=== PATIENT | female | born 1940 | race Caucasian/White ===

== ENCOUNTER → 2016-08-18 | Outpatient (CLI) | payer MEDICARE ==
--- NOTE | 2016-08-18 14:11 | KCIC ---
MR LUMBAR SPINE Indication: Chronic neck and back pain Technique: Sagittal T2, sagittal STIR, and sagittal T1-weighted images were obtained. Additional axial T1 and T2 weighted imaging was also performed. FINDINGS: There is very subtle grade 1 anterolisthesis of L5 on S1 and very subtle retrolisthesis of L2 on L3. Vertebral body heights are maintained. Bone marrow signal is normal. The conus terminates normally at the level of L2. Visualized intra-abdominal contents demonstrates left renal cysts and cortical scarring of the right kidney. L5-S1 there is mild bilateral facet arthropathy with very subtle grade 1 degenerative anterolisthesis. There is also mild disc height loss. This results in bilateral moderate bilateral foraminal stenosis worse on the right. Correlate for L5 radiculopathy symptoms. At L4-L5 there is a small disc bulge but no significant central spinal or neural foraminal stenosis. At L3-L4 there is a small disc bulge but no spinal stenosis. At L2-L3 there is a small disc bulge but no central spinal or neural foraminal stenosis. At L1-L2 there is no spinal stenosis. IMPRESSION: Degenerative disc and facet disease greatest at L5-S1 where there is grade 1 degenerative anterolisthesis and mild/moderate bilateral foraminal stenosis. This is somewhat worse on the left. Correlate for L5 radiculopathy symptoms. Electronically signed by: Shayne Miranda MD (08/18/2016 2:08 PM)
--- NOTE | 2016-08-18 14:14 | KCIC ---
MR CERVICAL SPINE Chronic neck and back pain Technique: Sagittal T2, sagittal STIR, sagittal T1, and axial gradient echo imaging was obtained of the cervical spine. FINDINGS: There is reversal of cervical lordosis centered over C5-C6. Craniocervical junction is within normal limits. The cord is normal in caliber with no signal abnormality identified. Visualized soft tissues of the neck are within normal limits. Incidental note is made of retropharyngeal course of the carotid arteries. At C2-3 there is no spinal stenosis. C3-4 there is no spinal stenosis. C4-5 there is very subtle anterolisthesis. There is mild facet arthropathy but no spinal stenosis. At C5-C6 there is bilateral vertebral hypertrophy worse on the right resulting in moderate right foraminal stenosis. Correlate for right C6 radiculopathy. At C6-C7 there is bilateral facet and uncovertebral hypertrophy causing mild bilateral foraminal stenosis. At C7-T1 there is no spinal stenosis. IMPRESSION: Degenerative disc and facet disease greatest at C5-6 where there is moderate right foraminal stenosis. Correlate for right C6 radiculopathy. Other less severe degenerative changes per level as above. Electronically signed by: Shayne Miranda MD (08/18/2016 2:11 PM)
== END | disposition home or self-care (01) ==
LOC: KCIC MRI 11:58
PROVIDERS: ATTEND Internal Medicine
DX: M50.322 Other cervical disc degeneration at C5-C6 level (principal); M48.02 Spinal stenosis, cervical region; M54.12 Radiculopathy, cervical region
CPT/HCPCS: 72141; 72148

== ENCOUNTER → 2017-01-17 | Outpatient (CLI) | payer MEDICARE ==
--- NOTE | 2017-01-17 15:05 | KCIC ---
DATE: 01/17/2017 EXAM: MAMMO SABRINA SCREENING BILATERAL HISTORY: Routine screening COMPARISON: 01/06/2016 This study was interpreted with the benefit of Computerized Aided Detection (CAD). The breast parenchyma is primarily fatty replaced. Breast parenchyma level density A. FINDINGS: 2-D and 3-D tomosynthesis imaging was performed in CC and MLO projections. No new or enlarging breast densities are seen. Benign type calcifications are present. No suspicious microcalcifications have developed. IMPRESSION: Stable mammograms without evidence of malignancy. BI-RADS CATEGORY: 2 BENIGN FINDING(S) RECOMMENDED FOLLOW-UP: 12M 12 MONTH FOLLOW-UP PQRS compliance statement: Patient information was entered into a reminder system with a target due date for the next mammogram. Mammography is a sensitive method for finding small breast cancers, but it does not detect them all and is not a substitute for careful clinical examination. A negative mammogram does not negate a clinically suspicious finding and should not result in delay in biopsying a clinically suspicious abnormality. "Our facility is accredited by the [employer] Mammography [employer]."
== END | disposition home or self-care (01) ==
LOC: KCIC MAMMO 13:40
PROVIDERS: ATTEND Internal Medicine
DX: Z12.31 Encounter for screening mammogram for malignant neoplasm of breast (principal)
CPT/HCPCS: 77063; G0202; 77067

== ENCOUNTER → 2017-07-27 | Outpatient (CLI) | payer MEDICARE | END | disposition home or self-care (01) | LOC: KCIC CT 09:41 | DX: J43.9 Emphysema, unspecified (principal); I25.10 Atherosclerotic heart disease of native coronary artery without angina pectoris | CPT/HCPCS: 71250 ==

== ENCOUNTER → 2018-01-18 | Outpatient (CLI) | payer MEDICARE ==
--- NOTE | 2018-01-18 18:16 | KCIC ---
Bilateral digital screening mammograms with 3-D tomosynthesis: Reason for examination: Routine screening. Comparison is made to previous studies dated back to 01/05/2015. Bilateral mammograms in CC and oblique projections were obtained with 2-D imaging and 3-D tomosynthesis imaging on a Siemens Inspiration unit and reviewed on the workstation. Interpretation was made with the benefit of CAD. The skin and nipples show no abnormalities. No abnormal axillary lymph nodes are seen. The breast parenchyma is predominantly fatty. (Breast density: Category A.) There continues to be some asymmetric parenchyma in the left breast in the retroareolar and 2:00 B positions which is unchanged. There continues to be a small parenchymal density in the 1:00 B position of the right breast which is unchanged. There are no new dominant masses, suspicious calcifications or architectural distortion. Benign calcifications are present. Impression: No evidence of malignancy. Recommend routine screening. BI-RAD Category 2: Benign. "Our facility is accredited by the [employer] Mammography Program." This patient's information has been entered into a reminder system for the patient to be notified with the results of her examination and a target date for the next mammogram. Electronically signed by: Hanane Aburto MD (01/18/2018 6:13 PM) [facility]
== END | disposition home or self-care (01) ==
LOC: KCIC MAMMO 09:46
PROVIDERS: ATTEND Internal Medicine
DX: Z12.31 Encounter for screening mammogram for malignant neoplasm of breast (principal)
CPT/HCPCS: 77063; 77067

== ENCOUNTER → 2018-06-10 | Outpatient (CLI) | payer MEDICARE ==
[2018-03-28 15:00] VITALS: BP 150/76
[~2018-06-10] MED LIST: AMLO5TAB10 PO; ASPI325T11 PO; BUDE10.22 IH; CALC-474 PO; GABA300C18 PO; IOHEXOL 300 MG/ML 100ML VIAL. IV ONE; METO-239 PO; OMEP20CA10 PO; SIMV20TA3 PO
--- NOTE | 2018-06-10 14:31 | KCIC ---
PQRS Compliance statement: One or more of the following individualized dose reduction techniques were utilized for this examination: 1. Automated exposure control. 2. Adjustment of the mA and/or kV according to patient size. 3. Use of iterative reconstruction technique. Indication:Thoracic aneurysm. TECHNIQUE: CT angiograms chest, abdomen and pelvis with IV contrast with multiplanar MIP reformats. 3-D volume rendered postprocessing was performed. COMPARISON: CT chest from 03/25/2018 FINDINGS: Heart is normal in size. No pericardial or pleural effusion. 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 Either an anatomic variant or surgically transposed left subclavian artery is seen originating from the aortic arch. The proximal bilateral common carotid arteries, bilateral vertebral arteries and right subclavian artery are patent. Mild diffuse atherosclerotic disease seen of the aortic arch and distal descending aorta. Aneurysmal dilation of the distal descending thoracic aorta with thick eccentric mural plaque measuring 5.4 x 4.3 cm, previously 5.0 x 4.4 cm. The length of the aneurysm approximately measures 6.2 cm just above the diaphragmatic hiatus. The celiac axis, splenic artery, left gastric artery, common hepatic artery, SMA, bilateral renal arteries, MAIDA, bilateral common iliac arteries, bilateral external and internal iliac arteries are patent. Delayed that mild atherosclerotic disease is seen in the bilateral common iliac arteries, bilateral external/internal iliac arteries and common femoral arteries. Infrarenal abdominal aortic aneurysm is seen measuring 3.4 x 3.0 cm in diameter for length of approximately 8 cm. No enlarged axillary, mediastinal or hilar adenopathy. Moderate diffuse emphysema. Lungs are clear. Liver, spleen, gallbladder, pancreas, adrenals within normal limits. Simple cyst is seen in the left kidney, the largest measuring 5.8 x 4.1 cm. No enlarged retroperitoneal or pelvic adenopathy. No free pelvic fluid or ascites. Left inguinal hernias is seen containing loop of small bowel with neck of the hernia measuring 3.2 cm. Right femoral hernia is seen containing loop of small bowel with neck of the hernia measuring 4.4 cm. No bowel obstruction. Normal appendix. Status post hysterectomy. Urinary bladder is within normal limits. No suspicious bony lesion. IMPRESSION: 1. Thoracic and abdominal aortic aneurysm as described above. 2. Moderate emphysema. 3. Bilateral inguinal hernias as described above. Electronically signed by: Larry Ashton DO (06/10/2018 2:28 PM) [facility]
== END | disposition home or self-care (01) ==
LOC: KCIC CT 09:34
PROVIDERS: ATTEND Surgery
DX: I71.2 Thoracic aortic aneurysm, without rupture (principal); I71.4 Abdominal aortic aneurysm, without rupture; J43.9 Emphysema, unspecified; K40.20 Bilateral inguinal hernia, without obstruction or gangrene, not specified as recurrent; I70.0 Atherosclerosis of aorta; N28.1 Cyst of kidney, acquired; I10 Essential (primary) hypertension; Z90.710 Acquired absence of both cervix and uterus; Z79.01 Long term (current) use of anticoagulants
CPT/HCPCS: 71275; 74174; Q9967

== ENCOUNTER → 2018-07-02 | Outpatient (CLI) | payer MEDICARE ==
[2018-03-28 15:00] VITALS: BP 150/76
[~2018-07-02] MED LIST changes: -IOHEXOL 300 MG/ML 100ML VIAL. IV ONE; +REGADENOSON 0.4 MG/5 ML DISP.SYRIN. IV ONE
--- NOTE | 2018-07-02 09:48 | CARD ---
MR#: [id number] Date of Study: 07/02/2018 Ordering Physician: FREDI GARNER, Referring Physician: FREDI GARNER, Tech: Rocio Mcneal APPROVED REPORT EXAM: Two-dimensional and M-mode echocardiogram with Doppler and color Doppler. Other Information Quality : AverageHR: 63bpm Technically limited study due to COPD INDICATION Pre-Op RISK FACTORS Hypertension Hyperlipidemia Smoking 2D DIMENSIONS RVDd2.0 (2.9-3.5cm)Left Atrium(2D)3.0 (1.6-4.0cm) IVSd0.9 (0.7-1.1cm)Aortic Root(2D)3.0 (2.0-3.7cm) LVDd5.2 (3.9-5.9cm)LVOT Diameter1.9 (1.8-2.4cm) PWd1.3 (0.7-1.1cm)LVDs3.6 (2.5-4.0cm) FS (%) 30.9 %SV76.7 ml LVEF(%)58.1 (>50%) Aortic Valve AoV Peak Emanuel.143.4cm/sAoV VTI31.9cm AO Peak GR.8.2mmHgLVOT Peak Emanuel.96.3cm/s LVOT VTI 22.35cmAO Mean GR.4mmHg DEBRA (VMAX)1.80mj6OQB (VTI)1.98cm2 Mitral Valve MV E Mjsohgxm22.6cm/sMV DECEL [id number] MV A Uwqgqiak08.0cm/sMV YTY55yw E/A Ratio1.0MVA (PHT)2.54cm2 TDI E/Lateral E'9.8E/Medial E'14.8 Pulmonary Valve PV Peak Uqxtxwio37.0cm/sPV Peak Grad.3mmHg Tricuspid Valve TR P. Iasbuais025la/sRAP CAZRUUOL5lkBq TR Peak Gr.85zgDsQKYH55qpXa Pulmonary Vein S1 Biiddwgm99.9cm/sD2 Ezxvlqgl88.0cm/s PVa qtslybrz667oiyi LEFT VENTRICLE The left ventricle is normal size. There is mild to moderate concentric left ventricular hypertrophy. The left ventricular systolic function is normal and the ejection fraction is within normal range. T he Ejection Fraction is >55%. There is normal LV segmental wall motion. Transmitral Doppler flow mynor jessica is Grade I-abnormal relaxation pattern. RIGHT VENTRICLE The right ventricle is normal size. There is normal right ventricular wall thickness. The right ventr icular systolic function is normal. ATRIA The left atrium size is normal. The right atrium size is normal. The interatrial septum is intact wit h no evidence for an atrial septal defect or patent foramen ovale as noted on 2-D or Doppler imaging. AORTIC VALVE The aortic valve is thickened but opens well. Doppler and Color Flow revealed no significant aortic r egurgitation. There is no significant aortic valvular stenosis. MITRAL VALVE The mitral valve is normal in structure and function. There is no evidence of mitral valve prolapse. There is no mitral valve stenosis. Doppler and Color Flow revealed no mitral valve regurgitation note d. TRICUSPID VALVE The tricuspid valve is normal in structure and function. Doppler and Color Flow revealed trace tricus pid regurgitation. There is no tricuspid valve stenosis. PULMONIC VALVE The pulmonic valve is not well visualized. Doppler and Color Flow revealed trace pulmonic valvular re gurgitation. GREAT VESSELS The aortic root is normal in size. The IVC is normal in size and collapses >50% with inspiration. PERICARDIAL EFFUSION There is no evidence of significant pericardial effusion. Critical Notification Critical Value: No <Conclusion> The left ventricular systolic function is normal and the ejection fraction is within normal range. Th e Ejection Fraction is >55%. There is normal LV segmental wall motion. Signed by : Bala Bush, Electronically Approved : 07/02/2018 09:48:03
--- NOTE | 2018-07-02 11:41 | RAD ---
MR#: [id number] Date of Study: 07/02/2018 Ordering Physician: FREDI GARNER, Referring Physician: SKYLAR EDMONDSON Tech: RT Kaitlin OrellanaR) (N) APPROVED REPORT Test Type: Pharmacological Stress Nurse/Tech: Chyna STOCKTON Test Indications: Thoracic Aortic Aneurysm, Pre OP Cardiac History: Cardiac cath 13yrs ago, HTN, X-smoker=Quit 6mths ago, See EMR Medications: ASA 325mg, See EMR Medical History: COPD, See EMR Resting ECG: SR Resting Heart Rate: 60 bpm Resting Blood Pressure: 142/68mmHg Pretest Chest Pain: No chest pain Nurse/Tech Notes Heart tones regular, Lungs diminished in bases and Right upper lobe wheezing. Consent: The procedure was explained to the patient in lay terms. Informed consent was witnessed. Ugo eout was entered into [email or web address]. History and Stress Test performed by RT Esteban (R) (N) Pharm. Details Pharmacologic stress testing was performed using 0.4mg per 5ml of regadenoson given intravenously ove r 7-10 seconds. Stress Symptoms Dyspnea with some chest "fullness". POST EXERCISE Reason for Termination: Infusion complete Max HR: 87 bpm Max Blood Pressure: 146/64mmHg Blood Pressure response to exercise: Normal blood pressure response during stress. Chest Pain: Yes. see stress symptoms Arrhythmia: No. ST Change: No. INTERPRETATION Stress EKG Conclusion: Baseline EKG showed sinus rhythm. No ischemic changes at peak stress. No arr hythmias. Imaging Protocol IMAGE PROTOCOL: Rest Tc-99m/stress Tc-99m 1 day Rest: Stress: Viability: Radiopharm.Tc99m CucppmmyrSd70k Sestamibi Uyug56cFi 32mCi Duration 15min. 10min. Img Date 07/02/2018 07/02/2018 Inj-Img Oixh70wqu. 60min. Rest Admin Site:IV - Left AntecubitalAdministrator:RT Kaitlin OrellanaR)(N) Stress Admin Site: IV - Left AntecubitalAdministrator: DULCE Weaver, ARRT (R)(N) STRESS DATA End Diast. Vol.63.0mlAv. Heart Rate69.0bpm End Syst. Vol.18.0mlCO Index BSA0.0L/min Myocardial Djhe230.0gEject. Vdcnzlqn42.0% Stress Rates Pk. Fill Rate2.75EDV/secLVtime Pk. Fill 235.78msec Pk. Empty Rate3.98ESV/secLVtime Pk. Szxat414.55msec 1/3 Pk. Fill0.60EDV/sec Stress Scores Regional WT0.00Summed WT0.00 Regional WM0.00Summed WM4.00 Study quality was good. Left Ventricular size was Normal at Rest and Stress. Lung uptake was . Left Ventricular ejection fraction is 71%. The rest and stress images show normal perfusion, normal contraction and thickening. LV Perf. Quant 17 Seg. SSS3.00 17 Seg. SRS0.00 17 Seg. SDS3.00 Stress Defect Extent (% LAD)0.00Rest Defect Extent (% LAD)0.00Rev. Defect Extent (% LAD)0.00 Stress Defect Extent (% LCX) 17.50Rest Defect Extent (% LCX)0.00Rev. Defect Extent (% LCX)12.50 Stress Defect Extent (% RCA)0.00Rest Defect Extent (% RCA)0.00Rev. Defect Extent (% RCA)0.00 Stress Defect Extent (% EMORY)3.70Rest Defect Extent (% EMORY)0.00Rev. Defect Extent (% EMORY)2.80 Conclusion 1. Regadenoson cardioisotope stress test did not show any evidence of ischemia or infarct. 2. Normal left ventricular systolic function with ejection fraction calculated at 71%. 3. Low risk for cardiac events. Signed by : Shaka Valenzuela, Electronically Approved : 07/02/2018 11:40:13
== END | disposition home or self-care (01) ==
LOC: NM 07:44
PROVIDERS: ATTEND Surgery
DX: Z01.818 Encounter for other preprocedural examination (principal); I11.9 Hypertensive heart disease without heart failure; J44.9 Chronic obstructive pulmonary disease, unspecified; I71.2 Thoracic aortic aneurysm, without rupture; E78.5 Hyperlipidemia, unspecified; Z87.891 Personal history of nicotine dependence
CPT/HCPCS: 78452; 93017; 93306; 96374; A9500; J2785

== ENCOUNTER → 2018-08-22 | Outpatient (CLI) | payer MEDICARE ==
[2018-03-28 15:00] VITALS: BP 150/76
[~2018-08-22] MED LIST changes: +CONTRAST GIVEN. MC PRN; +IOHEXOL 350 MG/ML 100 ML VIAL. IV ONE; -REGADENOSON 0.4 MG/5 ML DISP.SYRIN. IV ONE
--- NOTE | 2018-08-22 15:59 | RAD ---
Chest, 2 views, 08/22/2018: HISTORY: Repaired thoracic aortic aneurysm Comparison is made to a study from 03/25/2018. A stent graft has been placed in the descending thoracic aorta. There is calcific plaquing of the aorta. There is residual right lateral bulging of its right lateral wall at the lower thoracic level. The heart is at the upper limits of normal in size. The pulmonary vascularity is normal. There are emphysematous changes in the lungs. There are scattered parenchymal scars. No acute infiltrate is seen. There is no evidence of pleural fluid. Surgical clips are noted in the lower neck on the left. IMPRESSION: 1. Interval placement of a stent graft within the known descending thoracic aortic aneurysm. 2. Emphysema with bilateral parenchymal scarring. Electronically signed by: Cameron Rico MD (08/22/2018 3:56 PM) [facility]
--- NOTE | 2018-08-23 17:03 | RAD ---
CTA of the chest compared to similar study dated June 10, 2018 for thoracic aneurysm. TECHNIQUE: Contiguous helical 0.5 mm axial images are obtained from the thoracic inlet to the base of the diaphragm following administration of IV contrast in the systemic arterial phase. Sagittal and coronal MIPS are evaluated as are 3-D volume rendered images of the arterial system Nonvascular findings:There are advanced emphysematous changes, grossly stable. No suspicious lung nodules or masses are identified. Heart size within normal limits. Coronary artery calcifications are present. No suspicious mediastinal, hilar, or axillary lymphadenopathy is seen. Evaluation of the upper abdominal organs is limited by arterial phase of contrast, however no gross abnormalities of the visualized regions are evident. There are no suspicious osteoblastic or osteolytic bone lesions. Vascular findings: There has been interval placement of a thoracic aortic endograft. The descending thoracic aortic aneurysm has a maximum transverse diameter of 5.4 cm and a maximum AP diameter 4.0 cm, which is essentially stable or perhaps slightly smaller than the prior study. There is no apparent endoleak, though delayed phase imaging is not obtained. The celiac artery is patent. Left subclavian artery is occluded by soft plaque, but unchanged. Remaining great vessels are notable only for mild atherosclerosis. IMPRESSION: 1. Interval placement of a descending thoracic aortic endograft, resulting in exclusion of 5.4 cm aneurysm. No significant interval change in size at this time. No evidence of endoleak, though delayed imaging was not performed. 2. Emphysema. Electronically signed by: Sal Koch MD (08/23/2018 5:01 PM) [facility]
== END | disposition home or self-care (01) ==
LOC: CT 10:03
PROVIDERS: ATTEND Surgery
DX: I71.2 Thoracic aortic aneurysm, without rupture (principal); J43.8 Other emphysema
CPT/HCPCS: 71046; 71275; Q9967

== ENCOUNTER → 2019-01-20 | Outpatient (CLI) | payer MEDICARE ==
[2018-03-28 15:00] VITALS: BP 150/76
[~2019-01-20] MED LIST changes: -CONTRAST GIVEN. MC PRN; -IOHEXOL 350 MG/ML 100 ML VIAL. IV ONE
--- NOTE | 2019-01-20 12:49 | KCIC ---
Bilateral digital screening mammograms with 3-D tomosynthesis: Reason for examination: Routine screening. Comparison is made to previous studies dated 01/18/2018 and 01/17/2017. Bilateral mammograms in CC and oblique projections were obtained with 2-D imaging and 3-D tomosynthesis imaging on a Siemens Inspiration unit and reviewed on the workstation. Interpretation was made with the benefit of CAD. The skin and nipples show no abnormalities. No abnormal axillary lymph nodes are seen. The breast parenchyma is predominantly fatty. (Breast density: Category A.) There continue to be small nodular areas of parenchymal density bilaterally which are stable. There are no new dominant masses, suspicious calcifications or architectural distortion. Benign calcifications are present. Impression: No evidence of malignancy. Recommend routine screening. BI-RAD Category 2: Benign. "Our facility is accredited by the [employer] Mammography Program." This patient's information has been entered into a reminder system for the patient to be notified with the results of her examination and a target date for the next mammogram. Electronically signed by: Hanane Aburto MD (01/20/2019 12:46 PM) [facility]
== END | disposition home or self-care (01) ==
LOC: KCIC MAMMO 10:17
PROVIDERS: ATTEND Internal Medicine
DX: Z12.31 Encounter for screening mammogram for malignant neoplasm of breast (principal)
CPT/HCPCS: 77063; 77067

== ENCOUNTER → 2019-02-25 | Outpatient (CLI) | payer MEDICARE ==
[2018-03-28 15:00] VITALS: BP 150/76
[~2019-02-25] MED LIST changes: +IOHEXOL 300 MG/ML 100ML VIAL. IV ONE; +OMEP-229 PO; -OMEP20CA10 PO; +SIMV20TA18 PO; -SIMV20TA3 PO
--- NOTE | 2019-02-25 14:12 | KCIC ---
Two-view chest and two-view abdomen dated 02/25/2019. Comparison made to August 22, 2018. CLINICAL INDICATION: Thoracic aneurysm. Surgery 6 months ago. FINDINGS: PA and lateral views of the chest show stable heart and mediastinal contours. There is prior stent graft repair of descending thoracic aortic aneurysm, unchanged from prior study. There are some prominent interstitial markings at the perihilar regions and bilateral lung bases, unchanged. No consolidation or pleural effusion. No pneumothorax. Flat and upright views the abdomen show nondilated gas-filled loops of bowel throughout. No abnormal calcification. No air-fluid level or pneumoperitoneum on the upright view. IMPRESSION: 1. No acute abnormality of chest or abdomen. 2. Stent graft repair of descending thoracic aortic aneurysm, stable from prior study. 3. Mild interstitial changes at both lung bases, unchanged. Electronically signed by: Manjit Snell MD (02/25/2019 2:09 PM) [facility]
--- NOTE | 2019-02-25 15:52 | KCIC ---
CTA chest abdomen pelvis with and without contrast dated 02/25/2019. Comparison made to August 22, 2018. CLINICAL INDICATION: Follow-up stent graft repair of thoracic aortic aneurysm. TECHNIQUE: Contiguous axial imaging the chest abdomen pelvis performed after the administration of 100 cc Omnipaque 300. Study was performed as dedicated CTA with thin cut coronal and sagittal MIPS reconstructions and 3-D rotational reconstructions. One or more of the following individualized dose reduction techniques were utilized for this examination: 1. Automated exposure control 2. Adjustment of the mA and/or kV according to patient size 3. Use of iterative reconstruction technique. FINDINGS: Again noted is a stent graft repair of the descending thoracic aorta extending from the level of the left main pulmonary artery to the diaphragmatic hiatus. The aneurysm sac has decreased in size from the prior exam measuring 4.3 cm maximum dimension versus 5.3 cm previously. No evidence of endoleak or periaortic fluid collection. No intimal flap. The ascending thoracic aorta is normal in caliber measuring 3.3 cm transverse. There is some calcification at the aortic valve with scattered coronary calcifications. No pericardial effusion. The heart size is stable. 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 There appears to have been graft repair with carotid to subclavian bypass on the left, unchanged. No mediastinal, hilar or axillary lymphadenopathy. Thyroid gland unremarkable. Central airways are patent. Severe emphysema, unchanged. There is linear band of consolidation within the posterior aspect of the lingula, likely atelectasis, unchanged. No pleural effusion. Liver, spleen, pancreas, adrenal glands and gallbladder are unremarkable. Kidneys are symmetric in size and enhancement. There is mild cortical scarring at the right kidney midpole. No hydronephrosis. Low-density foci at the mid and lower pole left kidney consistent with cysts, unchanged. There is mild aneurysmal dilation of the infrarenal abdominal aorta measuring up to 4.1 cm transverse. This measured about 3.8 cm on the 03/25/2018 exam. No periaortic fluid collection. There is diffuse calcific and soft plaque throughout. Iliac vessels are grossly patent. Mild to moderate narrowing of the celiac artery origin with mild narrowing of the SMA origin. Bilateral renal arteries are patent. Unopacified GI tract is normal in caliber and contour. There is a small left inguinal hernia containing loops of small bowel. The small bowel loops are minimally dilated and fluid-filled. Colon is unremarkable. There are scattered diverticula in the sigmoid. No inflammatory changes in the mesentery. Appendix normal in caliber. No ascites or lymphadenopathy. Images of pelvis show nondistended urinary bladder. Uterus is surgically absent. No free fluid or pelvic lymphadenopathy. Small right inguinal hernia also contains a portion of small bowel. Bone windows show no acute findings. Multilevel spondylosis. IMPRESSION: 1. Status post stent graft repair of descending thoracic aortic aneurysm. The aneurysm sac has decreased in size from prior study. No evidence of endoleak or acute complication. 2. Infrarenal abdominal aortic aneurysm, decreased in size from prior study. 3. There are bilateral inguinal hernias containing loops of small bowel. No definite evidence for bowel obstruction. Correlate clinically. 4. 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 5. Severe emphysema. 6. Diverticulosis. Electronically signed by: Manjit Snell MD (02/25/2019 3:49 PM) [facility]
== END ==
LOC: KCIC CT 10:26
PROVIDERS: ATTEND Surgery
DX: I71.2 Thoracic aortic aneurysm, without rupture (principal); J43.9 Emphysema, unspecified; I70.208 Unspecified atherosclerosis of native arteries of extremities, other extremity; I77.1 Stricture of artery; I71.4 Abdominal aortic aneurysm, without rupture; K40.20 Bilateral inguinal hernia, without obstruction or gangrene, not specified as recurrent; K57.90 Diverticulosis of intestine, part unspecified, without perforation or abscess without bleeding; M47.899 Other spondylosis, site unspecified; I11.9 Hypertensive heart disease without heart failure; E78.5 Hyperlipidemia, unspecified; K21.9 Gastro-esophageal reflux disease without esophagitis; Z87.891 Personal history of nicotine dependence; Z90.710 Acquired absence of both cervix and uterus
CPT/HCPCS: 71046; 71275; 74021; 74177; 82565; Q9967